=== PATIENT | female | born 1970 | race Caucasian/White ===

== ENCOUNTER 2021-03-30 10:12 | Emergency (ER) | payer MEDICAID, SELFPAY ==
[2021-03-30 10:13] VITALS: BP 132/93; PULSE 84; RESP 16; TEMP 36.8; O2SAT 96; BMI 25.0
--- NOTE | 2021-03-30 11:02 | CT_ITS ---
STUDY: CT CERVICAL SPINE WITHOUT CONTRAST REASON FOR EXAM: Female, 51 years old. Trauma RADIATION DOSAGE (If Supplied By Facility): CTDIvol = ( 28.57 ) mGy, DLP = ( 1112.77 ) mGycm TECHNIQUE: High resolution transaxial imaging was performed without contrast material. Sagittal and coronal images were reconstructed. Individualized dose optimization techniques were used for this CT. COMPARISON: None FINDINGS: Normal craniovertebral junction. Normal anterior atlantoaxial articulation. Normal odontoid process. There is straightening of the normal cervical lordosis. Normal vertebral bodies and posterior osseous elements. C2-3: Normal endplates. Normal disc height and morphology. Normal central canal and intervertebral neuroforamina. C3-4: Normal endplates. Normal disc height and morphology. Normal central canal and intervertebral neuroforamina. C4-5: Normal endplates. Normal disc height and morphology. Normal central canal and intervertebral neuroforamina. C5-6: There is a marked degree of disc space narrowing and spondylosis at the C5-C6 level. Uncovertebral arthrosis. Mild degree of right neural foraminal stenosis. C6-7: Normal endplates. Normal disc height and morphology. Normal central canal and intervertebral neuroforamina. C7-T1: Normal endplates. Normal disc height and morphology. Normal central canal and intervertebral neuroforamina. Normal visualized soft tissue structures. CT/Spine Cervical without Contras IMPRESSION: Multilevel degenerative changes, as described above. Loss of the normal cervical lordosis. Electronically Signed: Ammon Estevez MD at 11:49 EST , Service support ,
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
--- NOTE | 2021-03-30 11:02 | CT_ITS ---
STUDY: CT BRAIN WITHOUT CONTRAST REASON FOR EXAM: Female, 51 years old. Trauma RADIATION DOSAGE (If Supplied By Facility): CTDIvol = ( 28.57 ) mGy, DLP = ( 1112.77 ) mGycm TECHNIQUE: Transaxial CT imaging of the brain was performed without administration of intravenous contrast material. Individualized dose optimization techniques were used for this CT. COMPARISON: No relevant priors. FINDINGS: Normal soft tissue structures. Normal calvarium. Normal size ventricles and extra-axial spaces for the patient''s age. Normal white matter tracts of the cerebral hemispheres. Normal basal ganglia and thalami. Normal brainstem. Normal cerebellum. There is no intracranial hemorrhage. There are no findings of an acute ischemic infarction. There is minimal mucosal thickening of the ethmoid sinuses bilaterally. CT/Brain/Head without Contrast IMPRESSION: Normal unenhanced CT scan of the brain. Electronically Signed: Ammon Estevez MD at 11:48 EST , Service support ,
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
[2021-03-30] MEDS: Morphine 4 MG/ML Syringe IM (11:22)
[2021-03-30] MEDS: Ondansetron 4 MG/2 ML Vial IM (11:22)
[2021-03-30 13:24] VITALS: BP 128/58; PULSE 84; RESP 16; O2SAT 99
== END 2021-03-30 13:27 | disposition home or self-care (01) ==
PROVIDERS: Emergency Provider Emergency Medicine; Visit Provider Emergency Medicine
DX: S16.1XXA Strain of muscle, fascia and tendon at neck level, initial encounter (principal); J44.9 Chronic obstructive pulmonary disease, unspecified; V49.40XA Driver injured in collision with unspecified motor vehicles in traffic accident, initial encounter; F17.210 Nicotine dependence, cigarettes, uncomplicated; Y93.9 Activity, unspecified; Y92.9 Unspecified place or not applicable
CPT/HCPCS: 70450; 71046; 72125; 96372; 99284; J2405

== ENCOUNTER 2023-10-11 00:30 | Emergency (ER) | payer SELFPAY ==
[2023-10-11 00:31] VITALS: BP 140/118; PULSE 93; RESP 18; TEMP 36.3; O2SAT 99; BMI 18.3
[2023-10-11] MEDS: LORazepam 1 MG Tablet PO ×2 (01:06→18:11)
[2023-10-11 01:09] LABS: Absolute Neutrophil Count 6.9 X10^3/uL (2.0-7.7); Basophil# 0.04 X10^3/uL; Basophil% 0.4 % (0-1); Eosinophil# 0.04 X10^3/uL; Eosinophils% 0.4 % (0-5); Hematocrit 44.3 % (37-47); Lymphocyte % 19.3 % (19-41); Mean Corp Hgb Conc 33.9 g/dL (32-36); Mean Corpuscular Hgb 30.4 pg (27.0-32.0); Mean Corpuscular Volume 89.7 fL (81-99); Mean Platelet Vol. 8.7 fl (6.2-12.0); Monocyte# 0.58 X10^3/uL; Monocyte% 6.2 % (0-10); NRBC Flagged by Analyzer 0 % (0-5); Neutrophil # 6.85 X10^3/uL (2.7-7.7); Neutrophil % 73.4 % (47-70); Platelet Count 353 K/mm3 (150-450); RBC Distribution Width CV 12.4 % (11.6-14.6); RBC Distribution Width SD 40.6 fl (35.1-43.9); Red Blood Count 4.94 M/mm3 (4.2-5.4); White Blood Count 9.3 K/mm3 (4.4-11.0)
[2023-10-11 01:20] LABS: Mucous, Urine 0 SEEN /hpf (<or=2+)
[2023-10-11 01:21] LABS: Color, Urine Yellow (Yellow); Glucose, Dipstick Normal (Normal); Ketone-Dipstick Negative (Negative); Leukocyte Esterase-Dipstick 25 /ul (Negative); Nitrite-Dipstick Positive (Negative); Occult Blood-Urine 50 /ul (Negative); Protein-Dipstick 30 mg/dl (Negative); Urine Bilirubin Dipstick Negative (Negative); Urine Clarity Sl. Cloudy (Clear); Urine Urobilinogen Normal (Normal); Urine pH 6.5 (5.0 - 8.0)
[2023-10-11 01:23] LABS: Alcohol, Blood (Medical)-Serum < 3.0 mg/dL
[2023-10-11 01:24] LABS: Internal QC Validated? YES +Cl - CLEAR BKGD; Pregnancy, Urine Negative Negative
[2023-10-11 01:24] LABS: Anion Gap 6 (5-15); BUN 8 mg/dL (7-18); BUN/Creat Ratio 9.3 RATIO (10-20); Calcium,Total 9.8 mg/dL (8.5-10.1); Chloride 105 mmol/L (98-107); Creatinine, Serum 0.86 mg/dL (0.55-1.02); EST Glomerular Filtration Rate 74 mL/min (>60); Est Glom Filt Rate - Afr Amer 90 mL/min (>60); Estimated Creatinine Clearance 51.92 ml/min; Glucose 83 mg/dL (74-106); Potassium 3.7 mmol/L (3.5-5.1); Sodium Level 142 mmol/L (136-145)
[2023-10-11 01:31] VITALS: BP 128/99; PULSE 84; RESP 18; O2SAT 96
[2023-10-11 01:32] LABS: Bacteria 3+ /hpf (None Seen); Red Blood Cells-Urine 0-5 SEEN /hpf (0-5); Squamous Epithelial Cells - UA 0-5 SEEN /hpf (5-10); White Blood Cells 0-5 SEEN /hpf (0-5)
[2023-10-11 01:42] LABS: Amphetamine Urine VISTA POSITIVE (<1000 ng/mL); Barbiturate Urine VISTA NEGATIVE (< 200 ng/mL); Benzodiazepine Urine VISTA NEGATIVE (< 200 ng/mL); Cocaine Urine VISTA NEGATIVE (< 300 ng/mL); Ecstacy Urine VISTA POSITIVE (< 500 ng/mL); Methadone Urine VISTA NEGATIVE (< 300 ng/mL); PCP Urine VISTA NEGATIVE (< 25 ng/mL); THC Urine VISTA NEGATIVE (< 50 ng/mL); Vista UDS pH Range 6
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
[2023-10-11] MEDS: Acetaminophen 500 MG Tablet 1000 MG PO (01:47)
[2023-10-11] MEDS: Ondansetron ODT 4 MG Tablet PO (08:16)
[2023-10-11 10:22] VITALS: BP 128/92; PULSE 82; RESP 17; TEMP 36.1; O2SAT 97
--- NOTE | 2023-10-11 11:12 | NURSING ---
[facility] CALLED, TALKED TO JOSEPH. FAXED FACESHEET TO THEM
[2023-10-11] MEDS: Ibuprofen 600 MG Tablet PO (13:19)
--- NOTE | 2023-10-11 15:19 | NURSING ---
CALLED [facility] ABOUT UPDATE ON TRANSPORTATION
--- NOTE | 2023-10-11 16:44 | NURSING ---
DUSTY, [facility], CALLED. ETA FOR [facility] IS ABOUT 1.5 HRS
--- NOTE | 2023-10-11 17:58 | ED.RN ---
REPORT CALLED BY THIS RN AT 1758 TO [facility]
[2023-10-11 18:00] VITALS: BP 141/114; PULSE 109; RESP 18; TEMP 35.7; O2SAT 96
[2023-10-11 18:42] VITALS: BP 141/114; PULSE 109; RESP 18; TEMP 35.7; O2SAT 96
== END 2023-10-11 18:47 ==
PROVIDERS: Emergency Provider Emergency Medicine; PCP Nurse Practitioner Family; Visit Provider Emergency Medicine
DX: R45.851 Suicidal ideations (principal); F15.10 Other stimulant abuse, uncomplicated; J44.9 Chronic obstructive pulmonary disease, unspecified; F32.A Depression, unspecified; F17.290 Nicotine dependence, other tobacco product, uncomplicated; R11.0 Nausea; R51.9 Headache, unspecified
CPT/HCPCS: 80048; 80307; 81001; 81025; 82077; 85025; 99284